=== PATIENT | male | born 1995 | race Caucasian/White ===

== ENCOUNTER 2024-03-16 12:39 | Inpatient (IN) | payer OTHER, SELFPAY ==
[2024-03-16 12:41] VITALS: BP 124/97; PULSE 132; RESP 26; TEMP 36.9; O2SAT 97; BMI 32.3
--- NOTE | 2024-03-16 12:48 | ED.GENADULT ---
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 Patient states that he has been vomiting for the last 2 days. He states that he has been unable to eat. He reports that over the weekend he ran out of insulin and his Dexcom CGM stopped working. He states that he did call [employer] for a replacement CGM. He states that he did initially have some insulin and was continuing his basal insulin and providing himself small boluses of insulin, but states that he has been doing this based off of feel as his Dexcom stopped working and he does not have a glucometer. He states no fevers or chills. He states no associated diarrhea. He states no chest pain or abdominal pain. He states no dyspnea. He states no urinary symptoms. He states his last hemoglobin A1c about a month ago was 12-13. He states no previous abdominal surgical history. Related Data Home Medications ?Medication ?Instructions ?Recorded ?Confirmed subcutaneous insulin pump (t:slim 03/16/24 03/16/24 X2 Basal-IQ Insulin Pump) Allergies Allergy/AdvReac Type Severity Reaction Status Date / Time No Known Allergies Allergy Verified 03/16/24 12:45 Review of Systems Review of Systems: ROS as per HPI [facility] Past Medical History Medical History Diabetes mellitus type 1 Social History Social History Smoked in Last 30 Days: No Use of substances other than those prescribed or required for medical reasons: No Advance Directives: No Advance Directives Information Provided: Yes Do you have a plan to hurt others: No Plan Physical Exam ED Vital Signs: Vital Signs - 24 hr 03/16/24 12:41 03/16/24 14:59 03/16/24 17:51 Temperature 98.5 F 98.0 F 98.0 F Pulse Rate 132 H 117 H 122 H Respiratory Rate 26 H 16 16 Blood Pressure 124/97 H 112/65 134/85 Pulse Oximetry 97 99 98 Oxygen Delivery Method Room Air Room Air Room Air BMI result Body Mass Index 32.3 Gen: NAD, AOx3 HEENT: NCAT, EOMI, normal conjunctiva, tacky oral mucosa CV: Tachycardic rate, regular rhythm, no chest wall tenderness/crepitus Pulm: CTAB, no increased work of breathing GI: Soft, NTND, no rebound, guarding or rigidity Neuro: Grossly non focal Course Course Course Narrative: RMEL 28 yold male presents to the ED for hyperglycemia. Patient has history of diabetes and states his glucose has been over 500 since Saturday with multiple episodes of vomiting. Patient not able to tolerate p.o.. Labs ordered. Patient is tachycaridc Medications Administered Generic Name Dose Route Start Last Admin Trade Name Freq PRN Reason Stop Dose Admin Enoxaparin Sodium 40 mg 03/16/24 20:00 03/16/24 21:31 Enoxaparin Sodium 40 Mg/0.4 Ml Syringe SUBCUT Not Given Q24H JAKI Lactated Ringer's 1,000 mls @ 100 mls/hr 03/16/24 15:30 03/16/24 15:43 Lr IVCONT 100 mls/hr .Q10H JAKI Administration Insulin Human Lispro 0 unit 03/16/24 21:00 03/16/24 21:30 Insulin Lispro 100 Unit/Ml 3 Ml Vial SUBCUT 6 unit QIDACHS JAKI Administration Protocol Ondansetron HCl 4 mg 03/16/24 19:10 03/16/24 21:31 Ondansetron Hcl 4 Mg/2 Ml Vial IVPUSH 4 mg Q8H PRN Administration Nausea and Vomiting Sodium Chloride 3 ml 03/17/24 00:00 03/16/24 23:15 0.9 % Sodium Chloride Flush 3 Ml Syringe IVFLUSH Not Given QSHIFT JAKI Discontinued Medications Generic Name Dose Route Start Last Admin Trade Name Freq PRN Reason Stop Dose Admin Sodium Chloride 1,000 mls @ 999 mls/hr 03/16/24 12:50 03/16/24 15:36 Ns IV 03/16/24 13:50 Infused .Q1H1M STA Infusion Sodium Chloride 1,000 mls @ 999 mls/hr 03/16/24 12:51 03/16/24 15:36 Ns IV 03/16/24 13:51 Infused .Q1H1M STA Infusion Lactated Ringer's 500 mls @ 999 mls/hr 03/16/24 16:15 03/16/24 16:12 Lr IV 03/16/24 16:45 Not Given .Q31M JAKI Lactated Ringer's 1,000 mls @ 999 mls/hr 03/16/24 17:23 03/16/24 17:51 Lr IV 03/16/24 18:23 Infused .Q1H1M ONE Infusion Insulin Glargine 20 unit 03/16/24 17:38 03/16/24 17:50 Insulin Glargine,Hum.Rec.Anlog 100 Unit/Ml 10 Ml Vial SUBCUT 03/16/24 17:39 20 unit ONCE ONE Administration Insulin Human Lispro 0 unit 03/16/24 16:30 03/16/24 15:37 Insulin Lispro 100 Unit/Ml 3 Ml Vial SUBCUT 03/17/24 14:54 10 unit QIDACHS [facility] Administration Protocol Insulin Human Regular 10 unit 03/16/24 16:50 03/16/24 16:59 Insulin Regular, Human 100 Unit/Ml 10 Ml Vial IVPUSH 03/16/24 16:51 10 unit ONCE ONE Administration Metoclopramide HCl 10 mg 03/16/24 15:17 03/16/24 15:37 Metoclopramide Hcl 10 Mg/2 Ml Vial IVPUSH 03/16/24 15:18 10 mg ONCE ONE Administration Ondansetron HCl 4 mg 03/16/24 14:06 03/16/24 14:19 Ondansetron Hcl 4 Mg/2 Ml Vial IVPUSH 03/16/24 14:07 4 mg ONCE ONE Administration Medical Decision Making Medical Decision Making MDM Narrative: Differential diagnosis includes, but is not limited to nausea/vomiting, viral syndrome, electrolyte abnormality, acute kidney injury, hyperglycemia, diabetic ketoacidosis. Patient is afebrile and hemodynamically stable on room air. Exam is notable for tacky oral mucosa and tachycardia, which is likely secondary to dehydration in the setting of hyperglycemia and osmotic diuresis. I considered CT imaging, but on serial examinations abdomen is soft, without focal rebound, guarding or rigidity. Patient continues to state that he does not have abdominal pain. Further there is low clinical suspicion for intra-abdominal pathology given reassuring abdominal exam, history and lack of abdominal surgical history suggests potential for postsurgical complications such as small-bowel obstruction secondary to adhesions. Patient was treated supportively with IV fluids and antiemetics including Zofran and Reglan. Patient was provided 10 units sliding scale subcutaneous insulin lispro. He received 1 L IV NS x2. I initially discussed the patient's case and management with admitting hospitalist, Dr. Zamora, who expressed concern for diabetic ketoacidosis and that the patient was not ready for admission to the general medical floor. However, I reviewed initial venous blood gas, which demonstrated no acid-base derangement given that pH was 7.32 and within the reference range. HC03 is low at 16, but this is likely secondary to dehydration/hypovolemia and acute kidney injury. Regardless, and continues to manage the patient and provided additional 1 L IV LR and initiated the patient on maintenance fluids with 100 cc/hour IV LR. He was provided 10 units IV regular insulin and given that he reported that his basal rate was approximately 1.5 units/hour and he had not yet tolerated oral intake I provided him only with 20 units subcutaneous insulin glargine. I reviewed and interpreted the patient's labs independently. CBC was notable for leukocytosis of 14.1, which I suspect is reactive in nature. He is without fever. There is no indication for antibiotics at this time. I suspect that patient's symptoms are likely secondary to viral illness versus poorly-controlled glucose. Initial labs consistent with pseudo hyponatremia with sodium of 132 and hyperglycemia correcting to normal. Labs otherwise notable for anion gap of 24, which is likely multifactorial and there is component of uremia as well as ketosis given beta hydroxybutyrate of 8.02. Labs notable for acute kidney injury with a creatinine of 2.27, which I suspect is prerenal in the setting of poor p.o. intake and vomiting. Labs do demonstrate improving renal function with creatinine of 1.57 on repeat. Anion gap is improving for 06/22/2016. Repeat venous blood gas once again reassuring with no acid-base derangement and pH 7.36, within normal limits of the reference range (7.3 to 7.43) and HC03 improving to a 17 - patient continues on maintenance LR. I discussed the patient's case and management with admitting hospitalist, Dr. Ewing, and patient is admitted for further workup and management. Critical Care Time: A total of 120 minutes spent in direct patient care with coordinating critical resuscitation, procedures, reviewing records, discussing with consultants, reviewing labs, and/or managing patient. Admission/Observation Consideration of admission/observation: Escalation of care including admission/observation considered Consult Healthcare Provider Management of the patient was discussed with: Hospitalist Lab Data MDM Lab Attestation statement: I reviewed the patient's lab results. 03/16/24 13:03 03/16/24 18:27 Labs: Lab Results 03/16/24 03/16/24 03/16/24 Range/Units 12:50 13:03 13:29 WBC 14.1 H (4.8-10.8) X10*3/uL RBC 5.50 (4.60-5.80) X10*6/uL Hgb 15.7 (14.0-18.0) g/dl Hct 45.2 (42.0-52.0) % MCV 82.2 (80.0-98.0) fL MCH 28.5 (27.0-33.0) pg MCHC 34.7 (31.0-36.0) g/dl RDW 13.9 (11.0-16.0) % Plt Count 310 (160-400) X10*3/uL MPV 10.2 (9.4-12.4) fL Immature Gran % (Auto) 0.6 H (0.0-0.4) % Neut % (Auto) 79.7 H (45-73) % Lymph % (Auto) 13.6 L (20-40) % [place] % (Auto) 5.5 (2-11) % Eos % (Auto) 0.1 (0-4) % Baso % (Auto) 0.5 (0-2) % Lymph # (Auto) 1.9 (1.2-4.9) X10*3/uL [place] # (Auto) 0.8 (0.1-1.2) X10*3/uL Eos # (Auto) 0.0 (0.0-0.4) X10*3/uL Baso # (Auto) 0.1 (0.0-0.2) X10*3/uL Abs Immat Gran (auto) 0.09 H (0.00-0.03) X10*3/uL Absolute Neuts (auto) 11.2 H (2.0-8.3) x10*3/uL Absolute Nucleated RBC 0.000 (0.0-0.012) X10*3/uL Nucleated RBC % (auto) 0.0 (0.0-0.2) /100WBC VBG pH 7.32 (7.32-7.43) VBG pCO2 31 mmHg VBG pO2 62 mmHg VBG HCO3 16 L (22-26) mmol/L VBG O2 Saturation 88.0 % VBG Base Excess -8.1 mmol/L Sodium 132 L (135-145) mmol/L Potassium 4.1 (3.3-5.1) mmol/L Chloride 92 L (96-108) mmol/L Carbon Dioxide 20 L (22-29) mmol/L Anion Gap 24 H (12-20) BUN 33 H (9-16) mg/dL Creatinine 2.27 H (0.5-1.4) mg/dL Estim Creat Clear Calc 57.4 Estimated GFR 34 POC Glucose 445 H* (60-115) mg/dL Random Glucose 432 H* (60-115) mg/dL Calcium 9.1 (8.4-10.2) mg/dL Total Bilirubin 0.8 (0.0-1.0) mg/dL AST 38 H (5-37) U/L ALT 20 (0-40) U/L Alkaline Phosphatase 128 H (39-117) U/L Total Protein 7.3 (6.5-8.0) g/dL Albumin 4.1 (3.5-5.0) g/dL Beta-Hydroxybutyrate 8.02 H (0.02-0.27) mmol/L 03/16/24 03/16/24 03/16/24 Range/Units 14:33 15:07 16:19 WBC (4.8-10.8) X10*3/uL RBC (4.60-5.80) X10*6/uL Hgb (14.0-18.0) g/dl Hct (42.0-52.0) % MCV (80.0-98.0) fL MCH (27.0-33.0) pg MCHC (31.0-36.0) g/dl RDW (11.0-16.0) % Plt Count (160-400) X10*3/uL MPV (9.4-12.4) fL Immature Gran % (Auto) (0.0-0.4) % Neut % (Auto) (45-73) % Lymph % (Auto) (20-40) % [place] % (Auto) (2-11) % Eos % (Auto) (0-4) % Baso % (Auto) (0-2) % Lymph # (Auto) (1.2-4.9) X10*3/uL [place] # (Auto) (0.1-1.2) X10*3/uL Eos # (Auto) (0.0-0.4) X10*3/uL Baso # (Auto) (0.0-0.2) X10*3/uL Abs Immat Gran (auto) (0.00-0.03) X10*3/uL Absolute Neuts (auto) (2.0-8.3) x10*3/uL Absolute Nucleated RBC (0.0-0.012) X10*3/uL Nucleated RBC % (auto) (0.0-0.2) /100WBC VBG pH (7.32-7.43) VBG pCO2 mmHg VBG pO2 mmHg VBG HCO3 (22-26) mmol/L VBG O2 Saturation % VBG Base Excess mmol/L Sodium (135-145) mmol/L Potassium (3.3-5.1) mmol/L Chloride (96-108) mmol/L Carbon Dioxide (22-29) mmol/L Anion Gap (12-20) BUN (9-16) mg/dL Creatinine (0.5-1.4) mg/dL Estim Creat Clear Calc Estimated GFR POC Glucose 389 H* 386 H* 417 H* (60-115) mg/dL Random Glucose (60-115) mg/dL Calcium (8.4-10.2) mg/dL Total Bilirubin (0.0-1.0) mg/dL AST (5-37) U/L ALT (0-40) U/L Alkaline Phosphatase (39-117) U/L Total Protein (6.5-8.0) g/dL Albumin (3.5-5.0) g/dL Beta-Hydroxybutyrate (0.02-0.27) mmol/L 03/16/24 03/16/24 03/16/24 Range/Units 16:22 17:31 18:27 WBC (4.8-10.8) X10*3/uL RBC (4.60-5.80) X10*6/uL Hgb (14.0-18.0) g/dl Hct (42.0-52.0) % MCV (80.0-98.0) fL MCH (27.0-33.0) pg MCHC (31.0-36.0) g/dl RDW (11.0-16.0) % Plt Count (160-400) X10*3/uL MPV (9.4-12.4) fL Immature Gran % (Auto) (0.0-0.4) % Neut % (Auto) (45-73) % Lymph % (Auto) (20-40) % [place] % (Auto) (2-11) % Eos % (Auto) (0-4) % Baso % (Auto) (0-2) % Lymph # (Auto) (1.2-4.9) X10*3/uL [place] # (Auto) (0.1-1.2) X10*3/uL Eos # (Auto) (0.0-0.4) X10*3/uL Baso # (Auto) (0.0-0.2) X10*3/uL Abs Immat Gran (auto) (0.00-0.03) X10*3/uL Absolute Neuts (auto) (2.0-8.3) x10*3/uL Absolute Nucleated RBC (0.0-0.012) X10*3/uL Nucleated RBC % (auto) (0.0-0.2) /100WBC VBG pH (7.32-7.43) VBG pCO2 mmHg VBG pO2 mmHg VBG HCO3 (22-26) mmol/L VBG O2 Saturation % VBG Base Excess mmol/L Sodium 134 L 136 (135-145) mmol/L Potassium 3.8 4.1 (3.3-5.1) mmol/L Chloride 100 103 (96-108) mmol/L Carbon Dioxide 13 L 20 L (22-29) mmol/L Anion Gap 25 H 17 (12-20) BUN 31 H 29 H (9-16) mg/dL Creatinine 1.62 H 1.57 H (0.5-1.4) mg/dL Estim Creat Clear Calc 80.5 83.0 Estimated GFR 51 52 POC Glucose 283 H (60-115) mg/dL Random Glucose 409 H* 269 H (60-115) mg/dL Calcium 8.2 L D 8.4 (8.4-10.2) mg/dL Total Bilirubin (0.0-1.0) mg/dL AST (5-37) U/L ALT (0-40) U/L Alkaline Phosphatase (39-117) U/L Total Protein (6.5-8.0) g/dL Albumin (3.5-5.0) g/dL Beta-Hydroxybutyrate 9.08 H (0.02-0.27) mmol/L 11/18/24 Range/Units 18:29 WBC (4.8-10.8) X10*3/uL RBC (4.60-5.80) X10*6/uL Hgb (14.0-18.0) g/dl Hct (42.0-52.0) % MCV (80.0-98.0) fL MCH (27.0-33.0) pg MCHC (31.0-36.0) g/dl RDW (11.0-16.0) % Plt Count (160-400) X10*3/uL MPV (9.4-12.4) fL Immature Gran % (Auto) (0.0-0.4) % Neut % (Auto) (45-73) % Lymph % (Auto) (20-40) % [place] % (Auto) (2-11) % Eos % (Auto) (0-4) % Baso % (Auto) (0-2) % Lymph # (Auto) (1.2-4.9) X10*3/uL [place] # (Auto) (0.1-1.2) X10*3/uL Eos # (Auto) (0.0-0.4) X10*3/uL Baso # (Auto) (0.0-0.2) X10*3/uL Abs Immat Gran (auto) (0.00-0.03) X10*3/uL Absolute Neuts (auto) (2.0-8.3) x10*3/uL Absolute Nucleated RBC (0.0-0.012) X10*3/uL Nucleated RBC % (auto) (0.0-0.2) /100WBC VBG pH 7.36 (7.32-7.43) VBG pCO2 30 mmHg VBG pO2 44 mmHg VBG HCO3 17 L (22-26) mmol/L VBG O2 Saturation 74.0 % VBG Base Excess -6.5 mmol/L Sodium (135-145) mmol/L Potassium (3.3-5.1) mmol/L Chloride (96-108) mmol/L Carbon Dioxide (22-29) mmol/L Anion Gap (12-20) BUN (9-16) mg/dL Creatinine (0.5-1.4) mg/dL Estim Creat Clear Calc Estimated GFR POC Glucose (60-115) mg/dL Random Glucose (60-115) mg/dL Calcium (8.4-10.2) mg/dL Total Bilirubin (0.0-1.0) mg/dL AST (5-37) U/L ALT (0-40) U/L Alkaline Phosphatase (39-117) U/L Total Protein (6.5-8.0) g/dL Albumin (3.5-5.0) g/dL Beta-Hydroxybutyrate (0.02-0.27) mmol/L Independent Interpretation I performed an independent interpretation of an: EKG Interpretation: I independently reviewed and interpreted the patient's EKG, which demonstrates sinus tachycardia at 122 beats per minute, OH 154, QRS 96, QTC 464, no STEMI Discharge Plan Discharge Clinical Impression: Nausea & vomiting, Acute hyperglycemia, Elevated beta-hydroxybutyrate, Leukocytosis, Elevated BUN, Acute kidney injury Patient Disposition: Admitted As Inpatient
[2024-03-16 12:54] LABS: Glucose, Whole Blood 445 mg/dL (60-115)
[2024-03-16 13:05] LABS: MANUAL DIFF FLAG NO
[2024-03-16 13:07] LABS: Basophils Absolute Auto 0.1 X10*3/uL (0.0-0.2); Basophils Percent Auto 0.5 % (0-2); Eosinophils Percent Auto 0.1 % (0-4); Hematocrit 45.2 % (42.0-52.0); Hemoglobin 15.7 g/dl (14.0-18.0); Imm Gran Abs Auto 0.09 X10*3/uL (0.00-0.03); Imm Gran Pct Auto 0.6 % (0.0-0.4); Lymphocytes Absolute Auto 1.9 X10*3/uL (1.2-4.9); Lymphocytes Percent Auto 13.6 % (20-40); Mean Corpuscular HGB Conc 34.7 g/dl (31.0-36.0); Mean Corpuscular Hemoglobin 28.5 pg (27.0-33.0); Mean Corpuscular Volume 82.2 fL (80.0-98.0); Mean Platelet Volume 10.2 fL (9.4-12.4); Monocytes Absolute Auto 0.8 X10*3/uL (0.1-1.2); Monocytes Percent Auto 5.5 % (2-11); Neutrophils Absolute Auto 11.2 x10*3/uL (2.0-8.3); Neutrophils Percent Auto 79.7 % (45-73); Platelet Count 310 X10*3/uL (160-400); Red Cell Distribution Width 13.9 % (11.0-16.0); White Blood Count 14.1 X10*3/uL (4.8-10.8)
[2024-03-16] MEDS: 0.9 % Sodium Chloride 1,000 ML 999 ML IV ×2 (13:18)
[2024-03-16 13:33] LABS: Venous Blood Gas Refer to POC result
[2024-03-16 13:34] LABS: VBG Base Excess -8.1 mmol/L; VBG HCO3 16 mmol/L (22-26); VBG pCO2 31 mmHg; VBG pH 7.32 (7.32-7.43); VBG pO2 62 mmHg
[2024-03-16 13:34] LABS: Beta-Hydroxybutyrate 8.02 mmol/L (0.02-0.27)
[2024-03-16 13:49] LABS: Alanine Aminotransferase 20 U/L (0-40); Albumin Level 4.1 g/dL (3.5-5.0); Alkaline Phosphatase 128 U/L (39-117); Anion Gap 24 (12-20); Aspartate Amino Transferase 38 U/L (5-37); Bilirubin Total 0.8 mg/dL (0.0-1.0); Blood Urea Nitrogen 33 mg/dL (9-16); Calcium 9.1 mg/dL (8.4-10.2); Carbon Dioxide 20 mmol/L (22-29); Chloride 92 mmol/L (96-108); Creatinine Clr Calc Pharmacy 57.4; Estimated Glomerular Filt Rate 34; Glucose Random 432 mg/dL (60-115); Potassium 4.1 mmol/L (3.3-5.1); Sodium 132 mmol/L (135-145); Total Protein 7.3 g/dL (6.5-8.0)
--- NOTE | 2024-03-16 14:11 | ECG_ITS ---
Test Reason : tachycardia Blood Pressure : / mmHG Vent. Rate : 122 BPM Atrial Rate : 122 BPM P-R Int : 154 ms QRS Dur : 096 ms QT Int : 326 ms P-R-T Axes : 045 063 053 degrees QTc Int : 464 ms Sinus tachycardia Otherwise normal ECG No previous ECGs available Referred By: Scout Santillan Electronically Signed By:HATTIE BUTT MD
[2024-03-16] MEDS: ondansetron HCL 4 MG/2 ML VIAL IVPUSH ×2 (14:19→21:31)
[2024-03-16 14:36] LABS: Glucose, Whole Blood 389 mg/dL (60-115)
[2024-03-16 14:59] VITALS: BP 112/65; PULSE 117; RESP 16; TEMP 36.7; O2SAT 99
[2024-03-16 15:10] LABS: Glucose, Whole Blood 386 mg/dL (60-115)
[2024-03-16] MEDS: Insulin Lispro 100 UNIT/ML 3 ML VIAL SUBCUT ×2 (15:37→21:30)
[2024-03-16] MEDS: Metoclopramide HCl 10 MG/2 ML VIAL IVPUSH (15:37)
[2024-03-16] MEDS: Lactated Ringers 1,000 ML 100 ML IVCONT (15:43)
[2024-03-16 16:25] LABS: Glucose, Whole Blood 417 mg/dL (60-115)
[2024-03-16 16:47] LABS: Anion Gap 25 (12-20); Blood Urea Nitrogen 31 mg/dL (9-16); Calcium 8.2 mg/dL (8.4-10.2); Carbon Dioxide 13 mmol/L (22-29); Chloride 100 mmol/L (96-108); Creatinine Clr Calc Pharmacy 80.5; Estimated Glomerular Filt Rate 51; Glucose Random 409 mg/dL (60-115); Potassium 3.8 mmol/L (3.3-5.1); Sodium 134 mmol/L (135-145)
[2024-03-16] MEDS: Insulin Regular, Human 100 UNIT/ML 10 ML VIAL 10 UNIT IVPUSH (16:59)
--- NOTE | 2024-03-16 17:02 | PHA.MEDREC ---
Pharmacy Consult ? Medication Reconciliation Pharmacy has completed the medication reconciliation. Confirmed with patient he is using Tslim X2 pump with Humalog and states he is doing 1.5 units for his Bazal rate, 1-8 for his carbs and 1-50 for correction. He states he took it today about 5 hours ago.
--- NOTE | 2024-03-16 17:04 | PHA.MEDREC ---
Addendum entered by Simran Hernandez RPh 03/16/24 17:36: [facility] reviewed Original Note: Pharmacy Consult ? Medication Reconciliation Pharmacy has completed the medication reconciliation. Confirmed with patient he is using Tslim X2 pump with Humalog and states he is doing 1.5 units for his basal rate, 1-8 for his carbs and 1-50 for correction. He states he took it today about 5 hours ago.
--- NOTE | 2024-03-16 17:23 | PM.EVENT ---
Event Note Date of Service: 03/16/24 Event Note: I was asked to assess this patient for admission. The patient has type 1 diabetes mellitus and presents with nausea and vomiting, and was found to have acute kidney injury (NARCISO), hyperglycemia, a bicarbonate level of 20, an anion gap of 24, and a B-hydroxybutyrate level of 8. He has received intravenous fluid boluses and subcutaneous insulin. The patient was in early diabetic ketoacidosis (DKA), which is worsening, with a current bicarbonate level of 13 and an anion gap of 25. I discussed the case with the ED provider, emphasizing that the patient cannot be managed on the floor at this time due to the need for IV fluids, IV insulin. I recommended consultation with the ICU for for possible IV insulin drip. The ED provider will notify us when the patient's condition improves and is suitable for admission to the floor. Labs including BMP and blood gas should be repeated . Time Spent With Patient Time: Total time managing care of this patient today ____ minutes.
[2024-03-16 17:29] LABS: Beta-Hydroxybutyrate 9.08 mmol/L (0.02-0.27)
[2024-03-16] MEDS: Lactated Ringers 1,000 ML 999 ML IV (17:29)
[2024-03-16 17:35] LABS: Glucose, Whole Blood 283 mg/dL (60-115)
[2024-03-16] MEDS: Insulin Glargine,Hum.rec.anlog 100 UNIT/ML 10 ML VIAL 20 UNIT SUBCUT (17:50)
[2024-03-16 17:51] VITALS: BP 134/85; PULSE 122; RESP 16; TEMP 36.7; O2SAT 98
[2024-03-16 18:37] LABS: VBG Base Excess -6.5 mmol/L; VBG HCO3 17 mmol/L (22-26); VBG pCO2 30 mmHg; VBG pH 7.36 (7.32-7.43); VBG pO2 44 mmHg
[2024-03-16 18:38] LABS: Venous Blood Gas Refer to POC result
[2024-03-16 18:46] LABS: Anion Gap 17 (12-20); Blood Urea Nitrogen 29 mg/dL (9-16); Calcium 8.4 mg/dL (8.4-10.2); Carbon Dioxide 20 mmol/L (22-29); Chloride 103 mmol/L (96-108); Estimated Glomerular Filt Rate 52; Glucose Random 269 mg/dL (60-115); Potassium 4.1 mmol/L (3.3-5.1); Sodium 136 mmol/L (135-145)
--- NOTE | 2024-03-16 19:12 | P.HPHOSP_ITS ---
History of Present Illness Date of Service: 03/16/24 Chief Complaint: Nausea/vomiting This is a 28-year-old male with pertinent history of type 1 diabetes mellitus who presents to the emergency department for evaluation of nausea and vomiting. Patient states that he ran out of insulin on 03/11 and 03/12. Patient's Dexcom stopped working 03/13. He started having generalized abdominal discomfort, nonradiating and without any relieving factors. Also with nausea and multiple episodes of nonbloody emesis. Patient with poor p.o. intake due to nausea and vomiting. He resumed insulin on 03/14 but was only giving small doses with estimation as his sense of stopped working. No fever, chills, chest pain, palpitations, shortness of breath, changes in bowel habits. In the emergency department, patient was found to be in DKA and initiated on IV insulin and IV fluids. Also serum creatinine found to be elevated. Review of Systems 2 Constitutional: Constitutional: Reports fatigue, Reports malaise and Reports weakness Cardiovascular: Cardiovascular: Reports no additional cardiovascular complaints Respiratory: Respiratory: Reports no additional respiratory complaints Gastrointestinal: Gastrointestinal: Reports abdominal pain, Reports nausea and Reports vomiting Genitourinary: Genitourinary: Reports no additional male genitourinary complaints Neurologic: Reports weakness Endocrine: Endocrine: Reports fatigue [facility] Medical History Diabetes mellitus type 1 Pertinent family history: No family history of early CAD Social History Advance Directives: No Advance Directives Information Provided: Yes Do you have a plan to hurt others: No Plan Meds Allergies Allergy/AdvReac Type Severity Reaction Status Date / Time No Known Allergies Allergy Verified 03/16/24 12:45 Active Medications: Current Medications Acetaminophen (Acetaminophen 325 Mg Tablet) 650 mg PO Q6H PRN PRN Reason: Pain, Mild (Pain Scale 1-3), fever or headache Calcium Carbonate (Calcium Carbonate 750 Mg Tab.Chew) 750 mg PO Q4H PRN PRN Reason: Heartburn Enoxaparin Sodium (Enoxaparin Sodium 40 Mg/0.4 Ml Syringe) 40 mg SUBCUT Q24H JAKI Glucose (Glucose Gel 15 Gm Gel..Gram.) 15 gm PO Q15M PRN; Protocol PRN Reason: per Hypoglycemia Standing Ord. Glucose (Glucose Gel 15 Gm Gel..Gram.) 15 gm PO Q15M PRN; Protocol PRN Reason: per Hypoglycemia Standing Ord. Dextrose (D10) 250 mls @ 750 mls/hr IV Q15M PRN; Protocol PRN Reason: per Hypoglycemia Standing Ord. Lactated Ringer's (Lr) 1,000 mls @ 100 mls/hr IVCONT .Q10H [facility] Last Admin: 03/16/24 15:43 Dose: 100 mls/hr Dextrose (D10) 250 mls @ 750 mls/hr IV Q15M PRN; Protocol PRN Reason: per Hypoglycemia Standing Ord. Insulin Glargine (Insulin Glargine,Hum.Rec.Anlog 100 Unit/Ml 10 Ml Vial) 20 unit SUBCUT BEDTIME JAKI Insulin Human Lispro (Insulin Lispro 100 Unit/Ml 3 Ml Vial) 0 unit SUBCUT QIDACHS [facility]; Protocol Stop: 03/17/24 14:54 Last Admin: 03/16/24 15:37 Dose: 10 unit Insulin Human Lispro (Insulin Lispro 100 Unit/Ml 3 Ml Vial) 0 unit SUBCUT QIDACHS [facility]; Protocol Magnesium Hydroxide (Milk Of Magnesia 30 Ml Oral.Susp) 30 ml PO DAILY PRN PRN Reason: Constipation Melatonin (Melatonin 3 Mg Tablet) 6 mg PO BEDTIME PRN PRN Reason: Insomnia Ondansetron HCl (Ondansetron Hcl 4 Mg/2 Ml Vial) 4 mg IVPUSH Q8H PRN PRN Reason: Nausea and Vomiting Sodium Chloride (0.9 % Sodium Chloride Flush 3 Ml Syringe) 3 ml IVFLUSH [facility] Home Medications ?Medication ?Instructions ?Recorded ?Confirmed ?Last Taken ?Type subcutaneous insulin pump (t:slim 03/16/24 03/16/24 Unknown History X2 Basal-IQ Insulin Pump) Physical Exam 2 Vital Signs and Narrative: Vital Signs: Last Vital Signs Temp 98.0 F 03/16/24 17:51 Pulse 122 H 03/16/24 17:51 Resp 16 03/16/24 17:51 BP 134/85 03/16/24 17:51 Pulse Ox 98 03/16/24 17:51 O2 Del Method Room Air 03/16/24 17:51 BMI result Body Mass Index 32.3 Middle-aged male lying in bed in no distress Neck supple, no JVD Regular rate and rhythm, S1-S2 heard Regular breath sounds bilaterally, no wheezing or crackles appreciated Abdomen soft nontender, no guarding, no rigidity Patient is awake, alert and oriented to self, place, time and person ; no focal motor deficit Psych: Normal mood No pedal edema Results Labs 03/16/24 13:03 03/16/24 18:27 Labs: Laboratory Results - last 24 hr 03/16/24 03/16/24 03/16/24 12:50 13:03 13:29 MCV 82.2 MCH 28.5 MCHC 34.7 RDW 13.9 Plt Count 310 MPV 10.2 Immature Gran % (Auto) 0.6 H Neut % (Auto) 79.7 H Lymph % (Auto) 13.6 L [place] % (Auto) 5.5 Eos % (Auto) 0.1 Baso % (Auto) 0.5 Lymph # (Auto) 1.9 [place] # (Auto) 0.8 Eos # (Auto) 0.0 Baso # (Auto) 0.1 Abs Immat Gran (auto) 0.09 H Absolute Neuts (auto) 11.2 H Absolute Nucleated RBC 0.000 Nucleated RBC % (auto) 0.0 VBG pH 7.32 VBG pCO2 31 VBG pO2 62 VBG HCO3 16 L VBG O2 Saturation 88.0 VBG Base Excess -8.1 Anion Gap 24 H Estim Creat Clear Calc 57.4 Estimated GFR 34 POC Glucose 445 H* Random Glucose 432 H* Calcium 9.1 Total Bilirubin 0.8 AST 38 H ALT 20 Alkaline Phosphatase 128 H Total Protein 7.3 Albumin 4.1 Beta-Hydroxybutyrate 8.02 H 03/16/24 03/16/24 03/16/24 14:33 15:07 16:19 MCV MCH MCHC RDW Plt Count MPV Immature Gran % (Auto) Neut % (Auto) Lymph % (Auto) [place] % (Auto) Eos % (Auto) Baso % (Auto) Lymph # (Auto) [place] # (Auto) Eos # (Auto) Baso # (Auto) Abs Immat Gran (auto) Absolute Neuts (auto) Absolute Nucleated RBC Nucleated RBC % (auto) VBG pH VBG pCO2 VBG pO2 VBG HCO3 VBG O2 Saturation VBG Base Excess Anion Gap Estim Creat Clear Calc Estimated GFR POC Glucose 389 H* 386 H* 417 H* Random Glucose Calcium Total Bilirubin AST ALT Alkaline Phosphatase Total Protein Albumin Beta-Hydroxybutyrate 03/16/24 03/16/24 03/16/24 16:22 17:31 18:27 MCV MCH MCHC RDW Plt Count MPV Immature Gran % (Auto) Neut % (Auto) Lymph % (Auto) [place] % (Auto) Eos % (Auto) Baso % (Auto) Lymph # (Auto) [place] # (Auto) Eos # (Auto) Baso # (Auto) Abs Immat Gran (auto) Absolute Neuts (auto) Absolute Nucleated RBC Nucleated RBC % (auto) VBG pH VBG pCO2 VBG pO2 VBG HCO3 VBG O2 Saturation VBG Base Excess Anion Gap 25 H 17 Estim Creat Clear Calc 80.5 83.0 Estimated GFR 51 52 POC Glucose 283 H Random Glucose 409 H* 269 H Calcium 8.2 L D 8.4 Total Bilirubin AST ALT Alkaline Phosphatase Total Protein Albumin Beta-Hydroxybutyrate 9.08 H 03/16/24 18:29 MCV MCH MCHC RDW Plt Count MPV Immature Gran % (Auto) Neut % (Auto) Lymph % (Auto) [place] % (Auto) Eos % (Auto) Baso % (Auto) Lymph # (Auto) [place] # (Auto) Eos # (Auto) Baso # (Auto) Abs Immat Gran (auto) Absolute Neuts (auto) Absolute Nucleated RBC Nucleated RBC % (auto) VBG pH 7.36 VBG pCO2 30 VBG pO2 44 VBG HCO3 17 L VBG O2 Saturation 74.0 VBG Base Excess -6.5 Anion Gap Estim Creat Clear Calc Estimated GFR POC Glucose Random Glucose Calcium Total Bilirubin AST ALT Alkaline Phosphatase Total Protein Albumin Beta-Hydroxybutyrate Assessment and Plan (1) Acute hyperglycemia: Status: Acute (2) DKA, type 1: Status: Acute (3) NARCISO (acute kidney injury): Status: Acute Plan This is a 28-year-old male with pertinent history of type 1 diabetes mellitus who presents to the emergency department for evaluation of nausea and vomiting. #. Diabetic ketoacidosis and hyperglycemia in a patient with type 1 diabetes mellitus: Patient was given IV fluids and IV insulin in the ER with resolution of DKA. Will admit patient with basal plus insulin regimen. Diabetes education. Closely monitor and titrate insulin regimen. #. Acute kidney injury stage II, prerenal: Creatinine improving with crystalloid resuscitation. Monitor and avoid nephrotoxins #. Reactive leukocytosis: No sepsis. DVT prophylaxis: Lovenox Full code Admit as inpatient and will require two night minimum hospital stay for close monitoring of kidney function, blood glucose levels (as above), which is not possible in a lesser acute setting. Quality Stroke Does the patient have a stroke diagnosis?: No VTE Prior VTE?: No VTE Risk Level:: Medical - moderate - high VTE Device Contraindication: Treatment Not Indicated VTE Drug Contraindication: N/A - Med Ordered
[2024-03-16 21:20] LABS: Glucose, Whole Blood 292 mg/dL (60-115)
[2024-03-16 23:27] VITALS: BP 104/56; PULSE 100; RESP 19; TEMP 37; O2SAT 96
[2024-03-16 23:30] LABS: Appearance Urine Clear; Color Urine Yellow; Glucose Urine UA >=1000 mg/dL (Negative); Leukocyte Esterase Urine Negative (Negative); Nitrite Urine Negative (Negative); PH 5.5 (5.0-9.0); Specific Gravity - Urine >= 1.030 (1.005-1.025); UMIC TRIGGER UACC YES; Urine Blood Negative (Negative); Urine Ketones 80 mg/dL (Negative); Urine Protein Trace mg/dL (Neg-Trace)
[2024-03-16 23:39] LABS: Bacteria Urine None Seen (None Seen); Hyaline Casts Urine 0-2 /LPF (0-2); RBC Urine 0-2 /HPF (0-2); Squamous Epithelial Cell Urine 0-2 /HPF (0-2); WBC Urine 0-5 /HPF (0-5)
--- NOTE | 2024-03-17 02:05 | PC.NURSE ---
pt had vomiting episode reports still nauseous/ prn not due for another 3 hours MD made aware. poc obtained 260 MD aware.
[2024-03-17 02:09] LABS: Glucose, Whole Blood 260 mg/dL (60-115)
[2024-03-17] MEDS: Metoclopramide HCl 10 MG/2 ML VIAL IVPUSH (02:25)
[2024-03-17] MEDS: Lactated Ringers 1,000 ML 100 ML IVCONT (02:28)
[2024-03-17 02:34] VITALS: BP 146/97; PULSE 114; RESP 15; O2SAT 98
[2024-03-17 05:37] LABS: MANUAL DIFF FLAG NO
[2024-03-17 05:39] LABS: Basophils Absolute Auto 0.1 X10*3/uL (0.0-0.2); Basophils Percent Auto 0.6 % (0-2); Eosinophils Absolute Auto 0.1 X10*3/uL (0.0-0.4); Eosinophils Percent Auto 0.5 % (0-4); Hematocrit 36.7 % (42.0-52.0); Hemoglobin 12.3 g/dl (14.0-18.0); Imm Gran Abs Auto 0.04 X10*3/uL (0.00-0.03); Imm Gran Pct Auto 0.4 % (0.0-0.4); Mean Corpuscular HGB Conc 33.5 g/dl (31.0-36.0); Mean Corpuscular Hemoglobin 27.7 pg (27.0-33.0); Mean Corpuscular Volume 82.7 fL (80.0-98.0); Mean Platelet Volume 10.4 fL (9.4-12.4); Monocytes Absolute Auto 0.8 X10*3/uL (0.1-1.2); Monocytes Percent Auto 7.1 % (2-11); Neutrophils Percent Auto 73.4 % (45-73); Platelet Count 254 X10*3/uL (160-400); Red Blood Count 4.44 X10*6/uL (4.60-5.80); Red Cell Distribution Width 13.9 % (11.0-16.0); White Blood Count 10.9 X10*3/uL (4.8-10.8)
[2024-03-17 05:54] LABS: Anion Gap 19 (12-20); Blood Urea Nitrogen 21 mg/dL (9-16); Calcium 8.6 mg/dL (8.4-10.2); Carbon Dioxide 18 mmol/L (22-29); Chloride 103 mmol/L (96-108); Creatinine Clr Calc Pharmacy 99.5; Estimated Glomerular Filt Rate > 60; Glucose Random 266 mg/dL (60-115); Potassium 3.8 mmol/L (3.3-5.1); Sodium 136 mmol/L (135-145)
[2024-03-17 07:16] LABS: Glucose, Whole Blood 259 mg/dL (60-115)
[2024-03-17] MEDS: ondansetron HCL 4 MG/2 ML VIAL IVPUSH (07:21)
[2024-03-17] MEDS: Insulin Lispro 100 UNIT/ML 3 ML VIAL SUBCUT ×2 (07:22→11:59)
[2024-03-17 07:23] VITALS: PULSE 110; RESP 18
--- NOTE | 2024-03-17 07:27 | PC.NURSE ---
increased pts LR to 150mL/hr per provider order change
[2024-03-17 09:00] LABS: Glucose, Whole Blood 237 mg/dL (60-115)
[2024-03-17] MEDS: Insulin Glargine,Hum.rec.anlog 100 UNIT/ML 10 ML VIAL 10 UNIT SUBCUT (09:28)
[2024-03-17 09:29] VITALS: BP 146/100; PULSE 108; RESP 18; TEMP 36.6; O2SAT 98
--- NOTE | 2024-03-17 09:56 | P.PNIM_ITS ---
Subjective Subjective Date of Service: 03/17/24 Interval History: f/u on dka, n/v peristent n/v bicab is lower, not eating much Physical Exam 2 Vital Signs: Vital Signs: Last Vital Signs Temp 98 F 03/17/24 09:29 Pulse 108 H 03/17/24 09:29 Resp 18 03/17/24 09:29 BP 146/100 H 03/17/24 09:29 Pulse Ox 98 03/17/24 09:29 O2 Del Method Room Air 03/17/24 09:29 BMI result Body Mass Index 32.3 Const: Other: General: AO X 3, no acute distress Resp: CTA bilateral CVS: S1,S2,RRR GI: +BS, NT, no distention Skin: No rash Neuro: motor grossly intact Psych: appropriate affect Objective Data Active Medications Acetaminophen (Acetaminophen 325 Mg Tablet) 650 mg PO Q6H PRN PRN Reason: Pain, Mild (Pain Scale 1-3), fever or headache Calcium Carbonate (Calcium Carbonate 750 Mg Tab.Chew) 750 mg PO Q4H PRN PRN Reason: Heartburn Enoxaparin Sodium (Enoxaparin Sodium 40 Mg/0.4 Ml Syringe) 40 mg SUBCUT Q24H [facility] Last Admin: 03/16/24 21:31 Dose: Not Given Documented By: NATANAEL Non-Admin Reason: Patient Refused Glucose (Glucose Gel 15 Gm Gel..Gram.) 15 gm PO Q15M PRN; Protocol PRN Reason: per Hypoglycemia Standing Ord. Lactated Ringer's (Lr) 1,000 mls @ 150 mls/hr IVCONT .Q6H40M [facility] Last Infusion: 03/17/24 07:27 Dose: 150 mls/hr Documented By: KEVIN Dextrose (D10) 250 mls @ 750 mls/hr IV Q15M PRN; Protocol PRN Reason: per Hypoglycemia Standing Ord. Insulin Glargine (Insulin Glargine,Hum.Rec.Anlog 100 Unit/Ml 10 Ml Vial) 20 unit SUBCUT BEDTIME [facility] Insulin Glargine (Insulin Glargine,Hum.Rec.Anlog 100 Unit/Ml 10 Ml Vial) 10 unit SUBCUT DAILY [facility] Last Admin: 03/17/24 09:28 Dose: 10 unit Documented By: KEVIN Insulin Human Lispro (Insulin Lispro 100 Unit/Ml 3 Ml Vial) 0 unit SUBCUT QIDACHS [facility]; Protocol Last Admin: 03/17/24 07:22 Dose: 6 unit Documented By: KEVIN Magnesium Hydroxide (Milk Of Magnesia 30 Ml Oral.Susp) 30 ml PO DAILY PRN PRN Reason: Constipation Melatonin (Melatonin 3 Mg Tablet) 6 mg PO BEDTIME PRN PRN Reason: Insomnia Ondansetron HCl (Ondansetron Hcl 4 Mg/2 Ml Vial) 4 mg IVPUSH Q8H PRN PRN Reason: Nausea and Vomiting Last Admin: 03/17/24 07:21 Dose: 4 mg Documented By: KEVIN Sodium Chloride (0.9 % Sodium Chloride Flush 3 Ml Syringe) 3 ml IVFLUSH [facility] Last Admin: 03/17/24 07:28 Dose: Not Given Documented By: KEVIN Non-Admin Reason: IV Running Labs 03/17/24 05:18 03/17/24 05:18 Labs: Laboratory Results - last 24 hr 03/16/24 03/16/24 03/16/24 12:50 13:03 13:29 MCV 82.2 MCH 28.5 MCHC 34.7 RDW 13.9 Plt Count 310 MPV 10.2 Immature Gran % (Auto) 0.6 H Neut % (Auto) 79.7 H Lymph % (Auto) 13.6 L [place] % (Auto) 5.5 Eos % (Auto) 0.1 Baso % (Auto) 0.5 Lymph # (Auto) 1.9 [place] # (Auto) 0.8 Eos # (Auto) 0.0 Baso # (Auto) 0.1 Abs Immat Gran (auto) 0.09 H Absolute Neuts (auto) 11.2 H Absolute Nucleated RBC 0.000 Nucleated RBC % (auto) 0.0 VBG pH 7.32 VBG pCO2 31 VBG pO2 62 VBG HCO3 16 L VBG O2 Saturation 88.0 VBG Base Excess -8.1 Anion Gap 24 H Estim Creat Clear Calc 57.4 Estimated GFR 34 POC Glucose 445 H* Random Glucose 432 H* Calcium 9.1 Total Bilirubin 0.8 AST 38 H ALT 20 Alkaline Phosphatase 128 H Total Protein 7.3 Albumin 4.1 Beta-Hydroxybutyrate 8.02 H Urine Color Urine Appearance Urine pH Ur Specific [place] Urine Protein Urine Glucose (UA) Urine Ketones Urine Blood Urine Nitrite Ur Leukocyte Esterase Urine RBC Urine WBC Ur Squamous Epith Cells Urine Bacteria Hyaline Casts 03/16/24 03/16/24 03/16/24 14:33 15:07 16:19 MCV MCH MCHC RDW Plt Count MPV Immature Gran % (Auto) Neut % (Auto) Lymph % (Auto) [place] % (Auto) Eos % (Auto) Baso % (Auto) Lymph # (Auto) [place] # (Auto) Eos # (Auto) Baso # (Auto) Abs Immat Gran (auto) Absolute Neuts (auto) Absolute Nucleated RBC Nucleated RBC % (auto) VBG pH VBG pCO2 VBG pO2 VBG HCO3 VBG O2 Saturation VBG Base Excess Anion Gap Estim Creat Clear Calc Estimated GFR POC Glucose 389 H* 386 H* 417 H* Random Glucose Calcium Total Bilirubin AST ALT Alkaline Phosphatase Total Protein Albumin Beta-Hydroxybutyrate Urine Color Urine Appearance Urine pH Ur Specific [place] Urine Protein Urine Glucose (UA) Urine Ketones Urine Blood Urine Nitrite Ur Leukocyte Esterase Urine RBC Urine WBC Ur Squamous Epith Cells Urine Bacteria Hyaline Casts 03/16/24 03/16/24 03/16/24 16:22 17:31 18:27 MCV MCH MCHC RDW Plt Count MPV Immature Gran % (Auto) Neut % (Auto) Lymph % (Auto) [place] % (Auto) Eos % (Auto) Baso % (Auto) Lymph # (Auto) [place] # (Auto) Eos # (Auto) Baso # (Auto) Abs Immat Gran (auto) Absolute Neuts (auto) Absolute Nucleated RBC Nucleated RBC % (auto) VBG pH VBG pCO2 VBG pO2 VBG HCO3 VBG O2 Saturation VBG Base Excess Anion Gap 25 H 17 Estim Creat Clear Calc 80.5 83.0 Estimated GFR 51 52 POC Glucose 283 H Random Glucose 409 H* 269 H Calcium 8.2 L D 8.4 Total Bilirubin AST ALT Alkaline Phosphatase Total Protein Albumin Beta-Hydroxybutyrate 9.08 H Urine Color Urine Appearance Urine pH Ur Specific [place] Urine Protein Urine Glucose (UA) Urine Ketones Urine Blood Urine Nitrite Ur Leukocyte Esterase Urine RBC Urine WBC Ur Squamous Epith Cells Urine Bacteria Hyaline Casts 03/16/24 03/16/24 03/16/24 18:29 21:16 23:24 MCV MCH MCHC RDW Plt Count MPV Immature Gran % (Auto) Neut % (Auto) Lymph % (Auto) [place] % (Auto) Eos % (Auto) Baso % (Auto) Lymph # (Auto) [place] # (Auto) Eos # (Auto) Baso # (Auto) Abs Immat Gran (auto) Absolute Neuts (auto) Absolute Nucleated RBC Nucleated RBC % (auto) VBG pH 7.36 VBG pCO2 30 VBG pO2 44 VBG HCO3 17 L VBG O2 Saturation 74.0 VBG Base Excess -6.5 Anion Gap Estim Creat Clear Calc Estimated GFR POC Glucose 292 H Random Glucose Calcium Total Bilirubin AST ALT Alkaline Phosphatase Total Protein Albumin Beta-Hydroxybutyrate Urine Color Yellow Urine Appearance Clear Urine pH 5.5 Ur Specific [place] >= 1.030 H Urine Protein Trace Urine Glucose (UA) >=1000 H Urine Ketones 80 Urine Blood Negative Urine Nitrite Negative Ur Leukocyte Esterase Negative Urine RBC 0-2 Urine WBC 0-5 Ur Squamous Epith Cells 0-2 Urine Bacteria None Seen Hyaline Casts 0-2 03/17/24 03/17/24 03/17/24 02:05 05:18 07:12 MCV 82.7 MCH 27.7 MCHC 33.5 RDW 13.9 Plt Count 254 MPV 10.4 Immature Gran % (Auto) 0.4 Neut % (Auto) 73.4 H Lymph % (Auto) 18.0 L [place] % (Auto) 7.1 Eos % (Auto) 0.5 Baso % (Auto) 0.6 Lymph # (Auto) 2.0 [place] # (Auto) 0.8 Eos # (Auto) 0.1 Baso # (Auto) 0.1 Abs Immat Gran (auto) 0.04 H Absolute Neuts (auto) 8.0 Absolute Nucleated RBC 0.000 Nucleated RBC % (auto) 0.0 VBG pH VBG pCO2 VBG pO2 VBG HCO3 VBG O2 Saturation VBG Base Excess Anion Gap 19 Estim Creat Clear Calc 99.5 Estimated GFR > 60 POC Glucose 260 H 259 H Random Glucose 266 H Calcium 8.6 Total Bilirubin AST ALT Alkaline Phosphatase Total Protein Albumin Beta-Hydroxybutyrate Urine Color Urine Appearance Urine pH Ur Specific [place] Urine Protein Urine Glucose (UA) Urine Ketones Urine Blood Urine Nitrite Ur Leukocyte Esterase Urine RBC Urine WBC Ur Squamous Epith Cells Urine Bacteria Hyaline Casts 03/17/24 08:56 MCV MCH MCHC RDW Plt Count MPV Immature Gran % (Auto) Neut % (Auto) Lymph % (Auto) [place] % (Auto) Eos % (Auto) Baso % (Auto) Lymph # (Auto) [place] # (Auto) Eos # (Auto) Baso # (Auto) Abs Immat Gran (auto) Absolute Neuts (auto) Absolute Nucleated RBC Nucleated RBC % (auto) VBG pH VBG pCO2 VBG pO2 VBG HCO3 VBG O2 Saturation VBG Base Excess Anion Gap Estim Creat Clear Calc Estimated GFR POC Glucose 237 H Random Glucose Calcium Total Bilirubin AST ALT Alkaline Phosphatase Total Protein Albumin Beta-Hydroxybutyrate Urine Color Urine Appearance Urine pH Ur Specific [place] Urine Protein Urine Glucose (UA) Urine Ketones Urine Blood Urine Nitrite Ur Leukocyte Esterase Urine RBC Urine WBC Ur Squamous Epith Cells Urine Bacteria Hyaline Casts Assessment and Plan (1) Acute hyperglycemia: Status: Acute (2) DKA, type 1: Status: Acute (3) Diabetes mellitus type 1: Status: Acute Plan 28/m with T1DM here with DKA associated nausea and vomitting. Diabetic ketoacidosis and hyperglycemia -being treated with IV insulin -bicab still on lower side -he suses insulin pump at home -continue Lantus at current dose +SSI, diabetic diet, follw CO2 Nausea and vomitting related to above -IVF and antiemetics, add pepcic Acute kidney injury stage II, prerenal, improved. -continue IVF and monitor Reactive leukocytosis: No sepsis. resolved. DVT prophylaxis: Lovenox Full code inpt d/t dka, on iv fluid and close monitoring of bmp Quality Stroke Does the patient have a stroke diagnosis?: No VTE Prior VTE?: No VTE Risk Level:: Medical - moderate - high VTE Device Contraindication: Treatment Not Indicated VTE Drug Contraindication: N/A - Med Ordered
[2024-03-17 11:59] LABS: Glucose, Whole Blood 257 mg/dL (60-115)
[2024-03-17 12:06] LABS: Anion Gap 19 (12-20); Carbon Dioxide 22 mmol/L (22-29); Chloride 100 mmol/L (96-108); Potassium 3.6 mmol/L (3.3-5.1); Sodium 137 mmol/L (135-145)
--- NOTE | 2024-03-17 13:04 | PM.DS ---
DS: Providers Provider Date of Service: 03/17/24 Date of admission: 03/16/24 19:10 Date of discharge: 03/17/24 Primary care physician: Unknown Physician DS: Diagnosis Discharge Diagnosis (1) Acute hyperglycemia: Status: Acute (2) DKA, type 1: Status: Acute (3) Diabetes mellitus type 1: Status: Acute DS: Summary Hospital Course Hospital Course: Chief Complaint: Nausea/vomiting This is a 28-year-old male with pertinent history of type 1 diabetes mellitus who presents to the emergency department for evaluation of nausea and vomiting. Patient states that he ran out of insulin on 03/11 and 03/12. Patient's Dexcom stopped working 03/13. He started having generalized abdominal discomfort, nonradiating and without any relieving factors. Also with nausea and multiple episodes of nonbloody emesis. Patient with poor p.o. intake due to nausea and vomiting. He resumed insulin on 03/14 but was only giving small doses with estimation as his sense of stopped working. No fever, chills, chest pain, palpitations, shortness of breath, changes in bowel habits. In the emergency department, patient was found to be in DKA and initiated on IV insulin and IV fluids. Also serum creatinine found to be elevated. Hospital course: Time Attestation Discharge Coordination Time (in mins): 35 Quality: Safe Use of Opioids Does Pt have an Active Cancer Diagnosis on the Problem List?: No Quality: Stroke Does the patient have a stroke diagnosis?: No Physical Exam Vital Signs: Vital Signs: Last Vital Signs Temp 98 F 03/17/24 09:29 Pulse 108 H 03/17/24 09:29 Resp 18 03/17/24 09:29 BP 146/100 H 03/17/24 09:29 Pulse Ox 98 03/17/24 09:29 O2 Del Method Room Air 03/17/24 09:29 BMI result Body Mass Index 32.3 Const: Other: General: AO X 3, no acute distress Resp: CTA bilateral CVS: S1,S2,RRR GI: +BS, NT, no distention Skin: No rash Neuro: motor grossly intact Psych: appropriate affect DS: Data Data Completed and Pending Labs on day of discharge: Laboratory Results - last 24 hr 03/16/24 03/16/24 03/16/24 12:50 13:03 13:29 WBC 14.1 H RBC 5.50 Hgb 15.7 Hct 45.2 MCV 82.2 MCH 28.5 MCHC 34.7 RDW 13.9 Plt Count 310 MPV 10.2 Immature Gran % (Auto) 0.6 H Neut % (Auto) 79.7 H Lymph % (Auto) 13.6 L [place] % (Auto) 5.5 Eos % (Auto) 0.1 Baso % (Auto) 0.5 Lymph # (Auto) 1.9 [place] # (Auto) 0.8 Eos # (Auto) 0.0 Baso # (Auto) 0.1 Abs Immat Gran (auto) 0.09 H Absolute Neuts (auto) 11.2 H Absolute Nucleated RBC 0.000 Nucleated RBC % (auto) 0.0 VBG pH 7.32 VBG pCO2 31 VBG pO2 62 VBG HCO3 16 L VBG O2 Saturation 88.0 VBG Base Excess -8.1 Sodium 132 L Potassium 4.1 Chloride 92 L Carbon Dioxide 20 L Anion Gap 24 H BUN 33 H Creatinine 2.27 H Estim Creat Clear Calc 57.4 Estimated GFR 34 POC Glucose 445 H* Random Glucose 432 H* Calcium 9.1 Total Bilirubin 0.8 AST 38 H ALT 20 Alkaline Phosphatase 128 H Total Protein 7.3 Albumin 4.1 Beta-Hydroxybutyrate 8.02 H Urine Color Urine Appearance Urine pH Ur Specific [place] Urine Protein Urine Glucose (UA) Urine Ketones Urine Blood Urine Nitrite Ur Leukocyte Esterase Urine RBC Urine WBC Ur Squamous Epith Cells Urine Bacteria Hyaline Casts 03/16/24 03/16/24 03/16/24 14:33 15:07 16:19 WBC RBC Hgb Hct MCV MCH MCHC RDW Plt Count MPV Immature Gran % (Auto) Neut % (Auto) Lymph % (Auto) [place] % (Auto) Eos % (Auto) Baso % (Auto) Lymph # (Auto) [place] # (Auto) Eos # (Auto) Baso # (Auto) Abs Immat Gran (auto) Absolute Neuts (auto) Absolute Nucleated RBC Nucleated RBC % (auto) VBG pH VBG pCO2 VBG pO2 VBG HCO3 VBG O2 Saturation VBG Base Excess Sodium Potassium Chloride Carbon Dioxide Anion Gap BUN Creatinine Estim Creat Clear Calc Estimated GFR POC Glucose 389 H* 386 H* 417 H* Random Glucose Calcium Total Bilirubin AST ALT Alkaline Phosphatase Total Protein Albumin Beta-Hydroxybutyrate Urine Color Urine Appearance Urine pH Ur Specific [place] Urine Protein Urine Glucose (UA) Urine Ketones Urine Blood Urine Nitrite Ur Leukocyte Esterase Urine RBC Urine WBC Ur Squamous Epith Cells Urine Bacteria Hyaline Casts 03/16/24 03/16/24 03/16/24 16:22 17:31 18:27 WBC RBC Hgb Hct MCV MCH MCHC RDW Plt Count MPV Immature Gran % (Auto) Neut % (Auto) Lymph % (Auto) [place] % (Auto) Eos % (Auto) Baso % (Auto) Lymph # (Auto) [place] # (Auto) Eos # (Auto) Baso # (Auto) Abs Immat Gran (auto) Absolute Neuts (auto) Absolute Nucleated RBC Nucleated RBC % (auto) VBG pH VBG pCO2 VBG pO2 VBG HCO3 VBG O2 Saturation VBG Base Excess Sodium 134 L 136 Potassium 3.8 4.1 Chloride 100 103 Carbon Dioxide 13 L 20 L Anion Gap 25 H 17 BUN 31 H 29 H Creatinine 1.62 H 1.57 H Estim Creat Clear Calc 80.5 83.0 Estimated GFR 51 52 POC Glucose 283 H Random Glucose 409 H* 269 H Calcium 8.2 L D 8.4 Total Bilirubin AST ALT Alkaline Phosphatase Total Protein Albumin Beta-Hydroxybutyrate 9.08 H Urine Color Urine Appearance Urine pH Ur Specific [place] Urine Protein Urine Glucose (UA) Urine Ketones Urine Blood Urine Nitrite Ur Leukocyte Esterase Urine RBC Urine WBC Ur Squamous Epith Cells Urine Bacteria Hyaline Casts 03/16/24 03/16/24 03/16/24 18:29 21:16 23:24 WBC RBC Hgb Hct MCV MCH MCHC RDW Plt Count MPV Immature Gran % (Auto) Neut % (Auto) Lymph % (Auto) [place] % (Auto) Eos % (Auto) Baso % (Auto) Lymph # (Auto) [place] # (Auto) Eos # (Auto) Baso # (Auto) Abs Immat Gran (auto) Absolute Neuts (auto) Absolute Nucleated RBC Nucleated RBC % (auto) VBG pH 7.36 VBG pCO2 30 VBG pO2 44 VBG HCO3 17 L VBG O2 Saturation 74.0 VBG Base Excess -6.5 Sodium Potassium Chloride Carbon Dioxide Anion Gap BUN Creatinine Estim Creat Clear Calc Estimated GFR POC Glucose 292 H Random Glucose Calcium Total Bilirubin AST ALT Alkaline Phosphatase Total Protein Albumin Beta-Hydroxybutyrate Urine Color Yellow Urine Appearance Clear Urine pH 5.5 Ur Specific [place] >= 1.030 H Urine Protein Trace Urine Glucose (UA) >=1000 H Urine Ketones 80 Urine Blood Negative Urine Nitrite Negative Ur Leukocyte Esterase Negative Urine RBC 0-2 Urine WBC 0-5 Ur Squamous Epith Cells 0-2 Urine Bacteria None Seen Hyaline Casts 0-2 03/17/24 03/17/24 03/17/24 02:05 05:18 07:12 WBC 10.9 H RBC 4.44 L Hgb 12.3 L D Hct 36.7 L MCV 82.7 MCH 27.7 MCHC 33.5 RDW 13.9 Plt Count 254 MPV 10.4 Immature Gran % (Auto) 0.4 Neut % (Auto) 73.4 H Lymph % (Auto) 18.0 L [place] % (Auto) 7.1 Eos % (Auto) 0.5 Baso % (Auto) 0.6 Lymph # (Auto) 2.0 [place] # (Auto) 0.8 Eos # (Auto) 0.1 Baso # (Auto) 0.1 Abs Immat Gran (auto) 0.04 H Absolute Neuts (auto) 8.0 Absolute Nucleated RBC 0.000 Nucleated RBC % (auto) 0.0 VBG pH VBG pCO2 VBG pO2 VBG HCO3 VBG O2 Saturation VBG Base Excess Sodium 136 Potassium 3.8 Chloride 103 Carbon Dioxide 18 L Anion Gap 19 BUN 21 H Creatinine 1.31 Estim Creat Clear Calc 99.5 Estimated GFR > 60 POC Glucose 260 H 259 H Random Glucose 266 H Calcium 8.6 Total Bilirubin AST ALT Alkaline Phosphatase Total Protein Albumin Beta-Hydroxybutyrate Urine Color Urine Appearance Urine pH Ur Specific [place] Urine Protein Urine Glucose (UA) Urine Ketones Urine Blood Urine Nitrite Ur Leukocyte Esterase Urine RBC Urine WBC Ur Squamous Epith Cells Urine Bacteria Hyaline Casts 03/17/24 03/17/24 03/17/24 08:56 11:35 11:55 WBC RBC Hgb Hct MCV MCH MCHC RDW Plt Count MPV Immature Gran % (Auto) Neut % (Auto) Lymph % (Auto) [place] % (Auto) Eos % (Auto) Baso % (Auto) Lymph # (Auto) [place] # (Auto) Eos # (Auto) Baso # (Auto) Abs Immat Gran (auto) Absolute Neuts (auto) Absolute Nucleated RBC Nucleated RBC % (auto) VBG pH VBG pCO2 VBG pO2 VBG HCO3 VBG O2 Saturation VBG Base Excess Sodium 137 Potassium 3.6 Chloride 100 Carbon Dioxide 22 Anion Gap 19 BUN Creatinine Estim Creat Clear Calc Estimated GFR POC Glucose 237 H 257 H Random Glucose Calcium Total Bilirubin AST ALT Alkaline Phosphatase Total Protein Albumin Beta-Hydroxybutyrate Urine Color Urine Appearance Urine pH Ur Specific [place] Urine Protein Urine Glucose (UA) Urine Ketones Urine Blood Urine Nitrite Ur Leukocyte Esterase Urine RBC Urine WBC Ur Squamous Epith Cells Urine Bacteria Hyaline Casts Discharge Plan Discharge Anticipated Discharge Date/Time: 03/17/24 13:00 Patient Disposition: Home, Self-Care Discharge Diagnosis: DKA, acute kidney injury, hyperglycemia, Nausea and vomitting Referrals: Physician,Unknown J [Primary Care Provider] - 1 Week Discharge Medications: No Action (DME) t:slim X2 Basal-IQ Insulin Razor Grinder Misc MISCELLANEOUS Rx Instructions: Uses humalog insulin with pump. Discharge Orders: Discharge Order (Routine); Ordered 03/17/24 Ordered By: Reyes Zamora Diet: Diabetic diet Activity on Discharge: As tolerated Stand Alone Forms: Patient Portal Discharge page Print Language: [place] Care Plan Goals: recovery from dka Health Concerns: dka, hyperglycemia, acute kidney injury, nausea and voitting Plan of Treatment: resume your insulin pump and continous glucose monitoring at home return to emergency or call 911 if there is a malfuntion of your machine drink plenty of fluid and follow up with your Doctor in a week Assessment: see above
--- NOTE | 2024-03-17 13:06 | MHC.CM.PN ---
pt dcd home self care prior to being seen by cm
[2024-03-17 13:26] VITALS: BP 145/91; PULSE 99; RESP 18; TEMP 36.8; O2SAT 100
== END 2024-03-17 13:28 | disposition home or self-care (01) | DRG 813 ==
LOC: HO.ED 19:24 → HO.EDOVER 19:28
PROVIDERS: Physician Assistant; Admitting Provider Student in an Organized Health Care Education/Training Program; Emergency Provider Emergency Medicine; Visit Provider Internal Medicine
DX: T85.694A Other mechanical complication of insulin pump, initial encounter (principal); E10.10 Type 1 diabetes mellitus with ketoacidosis without coma; N17.9 Acute kidney failure, unspecified; T38.3X6A Underdosing of insulin and oral hypoglycemic [antidiabetic] drugs, initial encounter
CPT/HCPCS: 36415; 80048; 80051; 80053; 81001; 82010; 82803; 82947; 85025; 93005; 99285; J2405; J2765; J7120

== ENCOUNTER → 2024-03-16 14:11 | Outpatient (BNV) | payer OTHER, SELFPAY | PROVIDERS: Emergency Provider Emergency Medicine; Visit Provider Internal Medicine Cardiovascular Disease | DX: R00.0 Tachycardia, unspecified (principal) | CPT/HCPCS: 93010 ==

== ENCOUNTER → 2024-03-16 14:14 | Outpatient (BNV) | payer OTHER, SELFPAY | PROVIDERS: Emergency Provider Emergency Medicine; Visit Provider Internal Medicine | DX: E10.10 Type 1 diabetes mellitus with ketoacidosis without coma (principal); E10.65 Type 1 diabetes mellitus with hyperglycemia; N17.9 Acute kidney failure, unspecified; D72.829 Elevated white blood cell count, unspecified | CPT/HCPCS: 99223; 99232; 99499 ==